=== PATIENT | female | born 1975 | race Caucasian/White ===

== ENCOUNTER 2025-03-04 14:13 | Emergency (ER) | payer OTHER, SELFPAY ==
[2025-03-04 14:25] VITALS: BP 127/74; PULSE 90; RESP 16; TEMP 36.6; O2SAT 99
--- NOTE | 2025-03-04 14:36 | ED_ITS ---
HPI - General Adult General Chief complaint: Ear Stated complaint: Right Ear Problem/Jaw Pain Time Seen by Provider: 03/04/25 14:35 Source: patient, RN notes reviewed and old records reviewed Mode of arrival: ambulatory Limitations: no limitations History of Present Illness HPI narrative: 50 year old female who presents to [facility] care with complaints of right jaw discomfort and right ear pain. Patient reports that she has TMJ and has not been treated. She reports that she feels like like her back teeth don't line up and has popping in her right jaw with shooting pain noted, states feels like nerve is trapped.Patient reports no cough or congestion or any body aches or any fevers. Patient reports that pain has increased since yesterday and she has increased pain when eating or drinking. She has taken Ibuprofen for her discomfort. MD complaint: rogt jaw and ear pain Onset (ago): week(s) (2 weeks popping in jaw increased since yesterday with ri ght ear pain.) Location: face (right jaw and ear) Severity scale (1-10): 6 Treatments prior to arrival: NSAID Related Data Allergies Allergy/AdvReac Type Severity Reaction Status Date / Time No Known Allergies Allergy Verified 03/04/25 14:32 Review of Systems Review of Systems: CONSTITUTIONAL: Denies fever, chills, or sweats. EYES: Denies visual changes, redness, or discharge. ENT: Denies rhinorrhea, congestion, sore throat, reports right otalgia and popping and pain in right jaw CARDIOVASCULAR: Denies chest pain, palpitations, or edema. RESPIRATORY: Denies cough or dyspnea. GASTROINTESTINAL: Denies abdominal pain, nausea, vomiting, or diarrhea. GENITOURINARY: Denies dysuria or hematuria. SKIN: Denies rash or itching. MUSCULOSKELETAL: Denies back pain, joint pain, or myalgia. NEUROLOGIC: Denies headache, numbness, or weakness. PSYCHIATRIC: Denies anxiety or depression. All systems reviewed & are unremarkable except as noted in HPI and below PMFSH Past Medical History Medical History (Updated 03/06/25 @ 11:11 by Gloria Rivas APRN) TMJ (temporomandibular joint disorder) Surgical History Surgical History (Updated 03/06/25 @ 11:01 by Gloria Rivas APRN) H/O thumb surgery H/O uterine ablation H/O breast augmentation Social History Social History (Updated 03/06/25 @ 11:00 by Gloria Rivas APRN) Smoking status: Never smoker Alcohol intake: current Alcohol use details: rare Substance use type: does not use Living arrangements: with family Gender identity (if verbalized by the patient): Female Comments At time of signature, agree with nursing past medical, surgical, social and family history. There is no relevant family history pertinent to the presenting complaint Exam Narrative: GENERAL: Well-appearing, well-nourished, and in no acute distress. HEAD: Normocephalic, atraumatic. EYES: PERRLA and EOMI. ENT: Nares clear, no rhinorrhea or epistaxis. Mucous membranes moist.TM's normal irritation and redness to ear canal of right ear, throat pink with no swelling or exudates, popping and pain to right jaw at TMJ,pain with eating and drinking reports shooting pain NECK: Supple. no lymphadenopathy CHEST: Clear to auscultation. No respiratory distress.no cough noted SAO2 99% on room air HEART: Regular rate and rhythm. No murmur heard. Normal peripheral pulses. ABDOMEN: Soft, nontender, nondistended, normal active bowel sounds. EXTREMITIES: Normal range of motion. No edema. SKIN: Warm, dry, no rash. NEURO: No focal deficits. Alert and oriented x3. Course Course Level of Care: Express Care Visit Vital Signs Vital signs: Vital Signs Temperature 36.6 C 03/04/25 14:25 Pulse Rate 90 03/04/25 14:25 Respiratory Rate 16 03/04/25 14:25 Blood Pressure 127/74 03/04/25 14:25 Pulse Oximetry 99 03/04/25 14:25 Oxygen Delivery Room Air 03/04/25 14:25 Temperature 36.6 C 03/04/25 14:25 Pulse Rate 90 03/04/25 14:25 Respiratory Rate 16 03/04/25 14:25 Blood Pressure 127/74 03/04/25 14:25 Pulse Oximetry 99 03/04/25 14:25 Oxygen Delivery Room Air 03/04/25 14:25 reviewed MDM MDM Narrative Medical decision making narrative: Patient reports right jaw pain and popping with shooting pain and right ear pain with otitis externa infection noted. Patient is appropriate for outpatient care and follow up. Anticipatory guidance and reasons to seek care in ED reviewed with understanding voiced Information about oral surgeon in [facility] given to patient as recommendation. Differential Diagnosis Differential Diagnosis: Differential diagnostic considerations for dental issues include gingival abscess, dental caries, toothache, dental abscess, fracture of tooth, aphthous ulcer, TMJ. Critical Care Time Critical Care Time Critical Care Time: No Discharge Plan Discharge Clinical Impression: Right-sided temporomandibular joint pain-dysfunction syndrome Otitis externa Qualifiers: Otitis externa type: diffuse Chronicity: acute Laterality: right Qualified Code(s): H60.311 - Diffuse otitis externa, right ear Patient Disposition: Home Condition: Stable Instructions: Swimmer's Ear (ED), Temporomandibular Disorder (ED) Additional Instructions: Increase fluids especially juices and water Tylenol or Ibuprofen for any fever or pain. Ear drops to right ear for 7 days heat to the face 20-30 minutes 4-6 times a day for pain Salt water gargles, throat lozenges or throat sprays as desired Prednisone for 5 days for inflammation take as ordered Follow up with oral surgeon or your dentist for evaluation of TMJ and wisdom teeth [facility] oral and facial surgery is in [place] [address] [phone] Dr Gonzalez Patient Language: Urdu Prescriptions: New prednisone 20 mg tablet 40 mg PO DAILY 5 Days Qty: 10 0RF Rx Instructions: take with food preferably in the morning ofloxacin 0.3 % drops 5 drp RIGHT EAR BID 7 Days Qty: 10 0RF Follow-up/Referrals: Alfred,Kemra Syed MD [Primary Care Provider, Unknown] Time of Disposition: 14:55 Quality Clyde Coma Scale Eyes: Open Verbal: Oriented and Alert Motor: Follows Commands Fields Coma Total Score: 15
== END 2025-03-04 15:01 | disposition home or self-care (01) ==
PROVIDERS: Emergency Provider Registered Nurse; PCP Family Medicine
DX: M26.621 Arthralgia of right temporomandibular joint (principal); H60.311 Diffuse otitis externa, right ear
CPT/HCPCS: 99203; G0463